=== PATIENT | male | born 1980 | race Caucasian/White ===

== ENCOUNTER 2016-11-19 13:48 | Emergency (ER) | payer OTHER ==
[~2016-11-19 13:48] MED LIST: ALBUTEROL HFA60 DOSE IN; CALCIUM600 M3 PO; MULTIVITAMIN1 TAB PO; PERCOCET1 TA4 PO; PROAIR HFA IN; VITAMIN D-31000 UNIT PO
--- NOTE | 2016-11-19 14:46 | DIAGNOSTIC IMAGING REPORT ---
PROCEDURE: XR TOE - RIGHT (fifth toe). INDICATION: TRAUMA/INJURY TECHNIQUE: Three views. COMPARISON: Comparison is made radiographs of the right foot on 09/13/2015. FINDINGS: There is an oblique fracture of the mid and distal shaft of the proximal phalanx, right fifth toe, with mild medial angulation. There is an old ununited fracture of the midshaft of the right third proximal phalanx. There are moderate degenerative changes right first metatarsal phalangeal joint. Postoperative changes of the right ankle (metal hardware - - partially visualized). IMPRESSION: 1. There is a mildly angulated fracture the midshaft of the proximal phalanx, right fifth toe. 2. Old ununited fracture of the right third proximal phalanx.
--- NOTE | 2016-11-19 15:27 | ED ORDER SUMMARY ---
..... Patient: MAX LEWIS OrderSheet [facility] VisitID: [id number] [address] [place] [address] 36y, M Registration Date/Time: 11/19/2016 ORDER SHEET Weight: 95.2 kg (stated) Allergies: Shellfish-derived Products GENERAL ORDERS: Toe Right Urgent (14:11 11/19/2016 HBivens A.R.N.P.) (Ack 14:12 Canelo) (15:27 HSoule) Elías Tape Toes (4&5) (15:26 11/19/2016 HBivens A.R.N.P.) (15:28 LNations ER Tech1) Post-op Shoe (15:27 11/19/2016 HBivens A.R.N.P.) (15:28 LNations ER Tech1) MEDICATION ORDERS: IV FLUIDS: ORDER SHEET NOTES: [Electronically signed by Deneen Swan (16:59 11/19/2016)] [Electronically signed by Anne Foreman A.R.N.P. (23:58 11/19/2016)] [Electronically locked/signed by Deneen Swan (16:59 11/19/2016)]
--- NOTE | 2016-11-19 15:27 | ED NURSING NOTES ---
Clinical Report - Nurses [facility] [address] [place] [address] 11/19/2016 13:50 Patient: MAX LEWIS TRIAGE Triage time 13:58 Nov 19 2016. Acuity: LEVEL 3. Chief Complaint: INJURY TO RIGHT FOOT. 14:01 11/19/16. SEPSIS SCREEN: Sepsis Screen: negative. Negative (no infection suspected/documented). FIONA COMA SCORE: [place] Coma Scale: 15- eyes open spontaneously (4); best verbal response- oriented x 4 (5); best motor response- obeys commands (6). --14:01 Deneen Swan 13:58 11/19/16. BP: 134/111. HR: 100. RR: 20. O2 saturation: 98%. Temp: 98.3 F (oral). Pain level now: 03/12. --14:01 Deneen Swan. Weight: 95.2 kg stated. Height/Length: 73 inches Per Patient. BMI: 27.7. --13:59 Deneen Swan. Medications ProAir HFA Inhalation. --14:00 Deneen Swan Tylenol Oral, as needed. Vitamins/Minerals Oral. --14:00 Deneen Swan. Allergies Shellfish-derived Products. --14:00 Deneen Swan. Medication/allergy information source: the patient. --14:01 Deneen Swan. History Arrived by private vehicle. Historian: patient. Unaccompanied. This occurred just prior to arrival. Occurred (gym). Mechanism of injury: sustained a twisting injury and fell. ( Patient was wrestling at the gym and his right toes got caught in between two wrestling mats. His toes was dislocated, he put it back into place and it came back out.). He has had trouble walking. PAST MEDICAL HX: Immunizations: up-to-date. SOCIAL HX: Never smoker. No alcohol use or drug use. No infectious disease exposure. ABUSE ASSESSMENT: No report of abuse. FALL RISK ASSESSMENT: Fall risk assessment completed. No fall risk identified. NUTRITIONAL RISK ASSESSMENT: The nutritional risk assessment revealed no deficiencies. FUNCTIONAL ASSESSMENT: Functional assessment: no impairments noted. LEARNING NEEDS ASSESSMENT: The learning needs assessment revealed no barriers. SKIN INTEGRITY ASSESSMENT: Skin integrity risk assessment completed. No skin integrity risk identified. --14:01 Deneen Swan. PROBLEMS: Skin Avulsion. Laceration. Asthma. Sprain. Headache. Hematoma. Asthma. Prior Injury, Same Area. Hypertension. --14:01 Deneen Swan Fractured Phalanx (Toe) [RuleOut]. --14:01 Deneen Swan. ADDITIONAL SURGERIES: Ankle Surgery. --14:01 Deneen Swan. Interventions ID band on patient. To treatment room. --14: Deneen Swan. PHYSICAL ASSESSMENT 14:11/19/16. Ambulatory to room. GENERAL / NEURO / PSYCH: Oriented X 4. Alert. Appears in no acute distress. EXTREMITIES: Capillary refill is less than 2 seconds in the extremities. Extremity pulses are within normal limits. Pain with weight bearing. Right foot: tenderness and deformity of the fifth toe. SKIN: Skin is warm and dry. --14:02 Deneen Swan. NURSING PROGRESS NOTES 14:02 11/19/16. Cold pack applied. Extremity elevated. Reassurance given to the patient. Two patient identifiers checked. Call light placed in reach. Side rails up x 1. Bed placed in lowest position. Brakes of bed on. Patient ready for evaluation- chart flagged. --14:02 Deneen Swan ( Radiology at bedside). --14:36 Deneen Swan The patient reports no complaints and he is resting quietly. --14:48 Deneen Swan ( arnaud taped 4th and 5th toe and applied post-op shoe.). --15:36 Jackie Card, GLENNA Tech1. DISPOSITION / DISCHARGE Departure time: 15:46 Nov 19 2016. Condition at departure: improved. No learning barriers present. Discharge instructions provided and reviewed with the patient. Reviewed warnings. Reviewed medication(s). Treatments reviewed. Reviewed referrals. Verbalized understanding. Written instructions provided in Sinhala. The patient was discharged home and accompanied by director of federal sales. He left the Emergency Department ambulatory and via private vehicle. Director Of Early Childhood Education driving. ( Reviewed BP with Anne Foreman FIRE APPARATUS SPRINKLER INSPECTOR and patient was cleared to dc. Patient encouraged to follow with MD for BP.). --15:47 Donato Dnih R.N. 15:37 11/19/16. BP: 159/118. HR: 92. RR: 18. O2 saturation: 98%. 15:35 11/19/16. BP: 159/118. HR: 90. RR: 20. O2 saturation: 96%. Temp: 98.6 F. Pain level now: 12/11. --15:47 Donato Dinh R.N. Locked/Released at 11/19/2016 16:59 by Deneen Swan,
--- NOTE | 2016-11-19 15:27 | ED ORDER SUMMARY ---
..... Patient: MAX LEWIS OrderSheet [facility] VisitID: [id number] [address] [place] [address] 36y, M Registration Date/Time: 11/19/2016 ORDER SHEET Weight: 95.2 kg (stated) Allergies: Shellfish-derived Products GENERAL ORDERS: Toe Right Urgent (14:11 11/19/2016 HBivens A.R.N.P.) (Ack 14:12 Canelo) (15:27 HSoule) Elías Tape Toes (4&5) (15:26 11/19/2016 HBivens A.R.N.P.) (15:28 LNations ER Tech1) Post-op Shoe (15:27 11/19/2016 HBivens A.R.N.P.) (15:28 LNations ER Tech1) MEDICATION ORDERS: IV FLUIDS: ORDER SHEET NOTES: [Electronically signed by Deneen Swan (16:59 11/19/2016)] [Electronically signed by Anne Foreman A.R.N.P. (23:58 11/19/2016)] [Electronically locked/signed by Deneen Swan (16:59 11/19/2016)]
--- NOTE | 2016-11-19 15:27 | ED CLINICAL REPORT ---
Clinical Report - Physicians/Mid Levels [facility] [address] [place] [address] 11/19/2016 13:50 Patient: MAX LEWIS Time Seen: 13:56; initial patient contact, initial documentation, patient care assumed. Arrived- By private vehicle. Historian- patient. HISTORY OF PRESENT ILLNESS Chief Complaint: Injury to the right 5th (small) toe. The injury happened just prior to arrival. The patient sustained a twisting injury. (gym). ( wrestling, and toe got caught in between mats). Patient is experiencing moderate pain. Patient denies injury to the head or neck. No other injury. (toe looked deformed, so it was pulled on to get it back in place, but it still looks funny and hurts). REVIEW OF SYSTEMS The patient complains of pain on weight bearing. No swelling, tingling, weakness, numbness or skin laceration. All systems otherwise negative, except as recorded above. PAST HISTORY See nurses notes. PROBLEMS: Skin Avulsion. Laceration. Asthma. Sprain. Headache. Hematoma. Asthma. Prior Injury, Same Area. Hypertension. --14:01 Deneen Swan Fractured Phalanx (Toe) [RuleOut]. --14:01 Deneen Swan. ADDITIONAL SURGERIES: Ankle Surgery. --14:01 Deneen Swan. SOCIAL HISTORY Never smoker. No alcohol use or drug use. No recent travel. Is a local resident. FAMILY HISTORY No significant family medical history. ADDITIONAL NOTES The nursing notes have been reviewed with agreement regarding the chief complaint, HPI, ROS, PMH and patient medications and allergies. PHYSICAL EXAM Vital Signs: 11/19/2016 13:58 BP: 134/111. HR: 100. RR: 20. O2 saturation: 98%. Temp: 98.3 F. Pain level now: 7/10. Have been reviewed as abnormal and do not appear to be correct. Hypertensive. Heart rate normal. Respiratory rate normal. Temperature normal. Oxygen saturation normal. Appearance: Alert. Oriented X3. No acute distress. Head: Head atraumatic. Eyes: Pupils equal, round and reactive to light. Eyes normal inspection. Respiratory: No respiratory distress. Back: Normal inspection. No tenderness. ROM normal. Skin: Skin intact. Skin warm and dry. Extremities: Right fifth toe: severe tenderness and mild swelling and deformity consistent with a dislocation of the MTP joint; limited movement secondary to pain (diminished flexion and extension). Neurovascular intact distally. No erythema, laceration, abrasion, ecchymosis or puncture wound. No foreign body. No localization, subungual hematoma or amputation present. No foot injury. No ankle injury. Foot and ankle exam otherwise negative. Extremities otherwise negative. Gait: Normal gait. Neuro, Vascular and Tendons: Vascular status intact. Sensation intact. Motor intact. Tendon function intact. Neuro: Oriented X 3. No motor deficit. No sensory deficit. Note: isolated injury to toe. LABS, X-RAYS, AND EKG X-Rays: Left toe(s). Lt Toes X-ray: (IMPRESSION: 1. There is a mildly angulated fracture the midshaft of the proximal phalanx, right fifth toe. 2. Old ununited fracture of the right third proximal phalanx. Electronically Final signed by:Sebastian Angela MD 11/19/2016 2:43:29 PM). The X-rays were interpreted by the radiologist and contemporaneously by me. PROGRESS AND PROCEDURES Course of Care: 15:41 11/19/16. nurse reporting dc vs, bp still high, pt now admits that he used to be on bp meds, but stopped taking them. Patient counseled in person regarding the patient's stable condition, test results and diagnosis. 14:51. Differential Diagnosis: Other possible considerations: toe fx, dislocation, sprain. Above considerations are based on history, physical exam and X-Ray data. Differential diagnosis was discussed with patient. Disposition: Discharged home in good and improved condition (15:27). Condition: good and stable. CLINICAL IMPRESSION Closed nondisplaced and mildly angulated proximal phalanx fracture of the right 5th toe. INSTRUCTIONS Apply ice for 20 minutes four times a day for two days. Elías tape toes until released. Elevate affected areas above chest level for two days until better. Wear shoe as directed until released. Warnings: GENERAL WARNINGS: Return or contact your physician immediately if your condition worsens or changes unexpectedly, if not improving as expected, or if other problems arise. Specifically return if problem worsens. Prescription Medications: Zofran 4 mg: Take 1 orally every six hours as needed for nausea/vomiting. Dispense ten (10). No refills. Substitution is permissible. [place] 5 mg / 325 mg tablets: take 1 to 2 orally every 6 hours as needed for pain. Dispense fifteen (15). No refills. Substitution is permissible. Motrin 800 mg tablets: take 1 tablet orally every 8 hours as needed for pain. Dispense thirty (30). No refills. Substitution is permissible. Follow-up: Screening today revealed the patient's blood pressure to be in the hypertensive range. The patient should follow up with a primary care provider for blood pressure management. Understanding of the discharge instructions verbalized by patient. Follow-up with: Alexander Drew DPM, Podiatry, , [address], [facility] [address] Follow up in about three days even if well. Call for an appointment. Summary of care provided to patient. (Electronically signed by Anne Foreman A.R.N.P. 11/19/2016 23:58)
--- NOTE | 2016-11-19 15:27 | ED NURSING NOTES ---
Clinical Report - Nurses [facility] [address] [place] [address] 11/19/2016 13:50 Patient: MAX LEWIS TRIAGE Triage time 13:58 Nov 19 2016. Acuity: LEVEL 3. Chief Complaint: INJURY TO RIGHT FOOT. 14:01 11/19/16. SEPSIS SCREEN: Sepsis Screen: negative. Negative (no infection suspected/documented). FIONA COMA SCORE: [place] Coma Scale: 15- eyes open spontaneously (4); best verbal response- oriented x 4 (5); best motor response- obeys commands (6). --14:01 Deneen Swan 13:58 11/19/16. BP: 134/111. HR: 100. RR: 20. O2 saturation: 98%. Temp: 98.3 F (oral). Pain level now: 03/12. --14:01 Deneen Swan. Weight: 95.2 kg stated. Height/Length: 73 inches Per Patient. BMI: 27.7. --13:59 Deneen Swan. Medications ProAir HFA Inhalation. --14:00 Deneen Swan Tylenol Oral, as needed. Vitamins/Minerals Oral. --14:00 Deneen Swan. Allergies Shellfish-derived Products. --14:00 Deneen Swan. Medication/allergy information source: the patient. --14:01 Deneen Swan. History Arrived by private vehicle. Historian: patient. Unaccompanied. This occurred just prior to arrival. Occurred (gym). Mechanism of injury: sustained a twisting injury and fell. ( Patient was wrestling at the gym and his right toes got caught in between two wrestling mats. His toes was dislocated, he put it back into place and it came back out.). He has had trouble walking. PAST MEDICAL HX: Immunizations: up-to-date. SOCIAL HX: Never smoker. No alcohol use or drug use. No infectious disease exposure. ABUSE ASSESSMENT: No report of abuse. FALL RISK ASSESSMENT: Fall risk assessment completed. No fall risk identified. NUTRITIONAL RISK ASSESSMENT: The nutritional risk assessment revealed no deficiencies. FUNCTIONAL ASSESSMENT: Functional assessment: no impairments noted. LEARNING NEEDS ASSESSMENT: The learning needs assessment revealed no barriers. SKIN INTEGRITY ASSESSMENT: Skin integrity risk assessment completed. No skin integrity risk identified. --14:01 Deneen Swan. PROBLEMS: Skin Avulsion. Laceration. Asthma. Sprain. Headache. Hematoma. Asthma. Prior Injury, Same Area. Hypertension. --14:01 Deneen Swan Fractured Phalanx (Toe) [RuleOut]. --14:01 Deneen Swan. ADDITIONAL SURGERIES: Ankle Surgery. --14:01 Deneen Swan. Interventions ID band on patient. To treatment room. --14: Deneen Swan. PHYSICAL ASSESSMENT 14:11/19/16. Ambulatory to room. GENERAL / NEURO / PSYCH: Oriented X 4. Alert. Appears in no acute distress. EXTREMITIES: Capillary refill is less than 2 seconds in the extremities. Extremity pulses are within normal limits. Pain with weight bearing. Right foot: tenderness and deformity of the fifth toe. SKIN: Skin is warm and dry. --14:02 Deneen Swan. NURSING PROGRESS NOTES 14:02 11/19/16. Cold pack applied. Extremity elevated. Reassurance given to the patient. Two patient identifiers checked. Call light placed in reach. Side rails up x 1. Bed placed in lowest position. Brakes of bed on. Patient ready for evaluation- chart flagged. --14:02 Deenen Swan ( Radiology at bedside). --14:36 Deneen Swan The patient reports no complaints and he is resting quietly. --14:48 Deneen Swan ( arnaud taped 4th and 5th toe and applied post-op shoe.). --15:36 Jackie Card, GLENNA Tech1. DISPOSITION / DISCHARGE Departure time: 15:46 Nov 19 2016. Condition at departure: improved. No learning barriers present. Discharge instructions provided and reviewed with the patient. Reviewed warnings. Reviewed medication(s). Treatments reviewed. Reviewed referrals. Verbalized understanding. Written instructions provided in Korean. The patient was discharged home and accompanied by residential sales. He left the Emergency Department ambulatory and via private vehicle. Financial Internship driving. ( Reviewed BP with Anne Foreman TILTING SAW OPERATOR and patient was cleared to dc. Patient encouraged to follow with MD for BP.). --15:47 Donato Dinh R.N. 15:37 11/19/16. BP: 159/118. HR: 92. RR: 18. O2 saturation: 98%. 15:35 11/19/16. BP: 159/118. HR: 90. RR: 20. O2 saturation: 96%. Temp: 98.6 F. Pain level now: 12/11. --15:47 Donato Dinh R.N. Locked/Released at 11/19/2016 16:59 by Deneen Swan,
--- NOTE | 2016-11-19 15:27 | ED CLINICAL REPORT ---
Clinical Report - Physicians/Mid Levels [facility] [address] [place] [place] [address] 11/19/2016 13:50 Patient: MAX LEWIS Time Seen: 13:56; initial patient contact, initial documentation, patient care assumed. Arrived- By private vehicle. Historian- patient. HISTORY OF PRESENT ILLNESS Chief Complaint: Injury to the right 5th (small) toe. The injury happened just prior to arrival. The patient sustained a twisting injury. (gym). ( wrestling, and toe got caught in between mats). Patient is experiencing moderate pain. Patient denies injury to the head or neck. No other injury. (toe looked deformed, so it was pulled on to get it back in place, but it still looks funny and hurts). REVIEW OF SYSTEMS The patient complains of pain on weight bearing. No swelling, tingling, weakness, numbness or skin laceration. All systems otherwise negative, except as recorded above. PAST HISTORY See nurses notes. PROBLEMS: Skin Avulsion. Laceration. Asthma. Sprain. Headache. Hematoma. Asthma. Prior Injury, Same Area. Hypertension. --14:01 Deneen Swan Fractured Phalanx (Toe) [RuleOut]. --14:01 Deneen Swan. ADDITIONAL SURGERIES: Ankle Surgery. --14:01 Deneen Swan. SOCIAL HISTORY Never smoker. No alcohol use or drug use. No recent travel. Is a local resident. FAMILY HISTORY No significant family medical history. ADDITIONAL NOTES The nursing notes have been reviewed with agreement regarding the chief complaint, HPI, ROS, PMH and patient medications and allergies. PHYSICAL EXAM Vital Signs: 11/19/2016 13:58 BP: 134/111. HR: 100. RR: 20. O2 saturation: 98%. Temp: 98.3 F. Pain level now: 7/10. Have been reviewed as abnormal and do not appear to be correct. Hypertensive. Heart rate normal. Respiratory rate normal. Temperature normal. Oxygen saturation normal. Appearance: Alert. Oriented X3. No acute distress. Head: Head atraumatic. Eyes: Pupils equal, round and reactive to light. Eyes normal inspection. Respiratory: No respiratory distress. Back: Normal inspection. No tenderness. ROM normal. Skin: Skin intact. Skin warm and dry. Extremities: Right fifth toe: severe tenderness and mild swelling and deformity consistent with a dislocation of the MTP joint; limited movement secondary to pain (diminished flexion and extension). Neurovascular intact distally. No erythema, laceration, abrasion, ecchymosis or puncture wound. No foreign body. No localization, subungual hematoma or amputation present. No foot injury. No ankle injury. Foot and ankle exam otherwise negative. Extremities otherwise negative. Gait: Normal gait. Neuro, Vascular and Tendons: Vascular status intact. Sensation intact. Motor intact. Tendon function intact. Neuro: Oriented X 3. No motor deficit. No sensory deficit. Note: isolated injury to toe. LABS, X-RAYS, AND EKG X-Rays: Left toe(s). Lt Toes X-ray: (IMPRESSION: 1. There is a mildly angulated fracture the midshaft of the proximal phalanx, right fifth toe. 2. Old ununited fracture of the right third proximal phalanx. Electronically Final signed by:Sebastian Angela MD 11/19/2016 2:43:29 PM). The X-rays were interpreted by the radiologist and contemporaneously by me. PROGRESS AND PROCEDURES Course of Care: 15:41 11/19/16. nurse reporting dc vs, bp still high, pt now admits that he used to be on bp meds, but stopped taking them. Patient counseled in person regarding the patient's stable condition, test results and diagnosis. 14:51. Differential Diagnosis: Other possible considerations: toe fx, dislocation, sprain. Above considerations are based on history, physical exam and X-Ray data. Differential diagnosis was discussed with patient. Disposition: Discharged home in good and improved condition (15:27). Condition: good and stable. CLINICAL IMPRESSION Closed nondisplaced and mildly angulated proximal phalanx fracture of the right 5th toe. INSTRUCTIONS Apply ice for 20 minutes four times a day for two days. Elías tape toes until released. Elevate affected areas above chest level for two days until better. Wear shoe as directed until released. Warnings: GENERAL WARNINGS: Return or contact your physician immediately if your condition worsens or changes unexpectedly, if not improving as expected, or if other problems arise. Specifically return if problem worsens. Prescription Medications: Zofran 4 mg: Take 1 orally every six hours as needed for nausea/vomiting. Dispense ten (10). No refills. Substitution is permissible. [place] 5 mg / 325 mg tablets: take 1 to 2 orally every 6 hours as needed for pain. Dispense fifteen (15). No refills. Substitution is permissible. Motrin 800 mg tablets: take 1 tablet orally every 8 hours as needed for pain. Dispense thirty (30). No refills. Substitution is permissible. Follow-up: Screening today revealed the patient's blood pressure to be in the hypertensive range. The patient should follow up with a primary care provider for blood pressure management. Understanding of the discharge instructions verbalized by patient. Follow-up with: Alexander Drew DPM, Podiatry, , [address], [facility] [address] Follow up in about three days even if well. Call for an appointment. Summary of care provided to patient. (Electronically signed by Anne Foreman A.R.N.P. 11/19/2016 23:58)
--- NOTE | 2016-11-19 23:59 | ED MED RECONCILIATION SUMMARY ---
Patient: MAX LEWIS Medication Reconciliation Report [facility] VisitID: [id number] [address] [place] [address] 36y, M Registration Date/Time: 11/19/2016 Weight: 95.2 kg Height/Length: 73 in. BMI: 27.7 ALLERGIES: Shellfish-derived Products The patient's Home Medications are listed below: THE FOLLOWING MEDICATIONS NEED TO BE RECONCILED: ProAir HFA Inhalation Tylenol Oral Vitamins/Minerals Oral The source(s) of the original Home Medication information: patient The following Medications were given to the patient in the Emergency Department: None. The following Medications were prescribed to the patient: Zofran 4 mg: Take 1 orally every six hours as needed for nausea/vomiting. Dispense ten (10). No refills. Substitution is permissible. -- Anne Foreman A.R.N.P. [place] 5 mg / 325 mg tablets: take 1 to 2 orally every 6 hours as needed for pain. Dispense fifteen (15). No refills. Substitution is permissible. -- Anne Foreman A.R.N.P. Motrin 800 mg tablets: take 1 tablet orally every 8 hours as needed for pain. Dispense thirty (30). No refills. Substitution is permissible. -- Anne Foreman A.R.N.P.
--- NOTE | 2016-11-19 23:59 | ED MAR SUMMARY ---
..... Medication Administration Record [place] [address] [place], [place] [id number] Patient: MAX LEWIS Visit ID: [id number] 36y, M Weight: 95.2 kg Height/Length: 73 in BMI: 27.7 ALLERGIES: Shellfish-derived Products
--- NOTE | 2016-11-19 23:59 | ED MED RECONCILIATION SUMMARY ---
Patient: MAX LEWIS Medication Reconciliation Report [facility] VisitID: [id number] [address] [place] [address] 36y, M Registration Date/Time: 11/19/2016 Weight: 95.2 kg Height/Length: 73 in. BMI: 27.7 ALLERGIES: Shellfish-derived Products The patient's Home Medications are listed below: THE FOLLOWING MEDICATIONS NEED TO BE RECONCILED: ProAir HFA Inhalation Tylenol Oral Vitamins/Minerals Oral The source(s) of the original Home Medication information: patient The following Medications were given to the patient in the Emergency Department: None. The following Medications were prescribed to the patient: Zofran 4 mg: Take 1 orally every six hours as needed for nausea/vomiting. Dispense ten (10). No refills. Substitution is permissible. -- Anne Foreman A.R.N.P. [place] 5 mg / 325 mg tablets: take 1 to 2 orally every 6 hours as needed for pain. Dispense fifteen (15). No refills. Substitution is permissible. -- Anne Foreman A.R.N.P. Motrin 800 mg tablets: take 1 tablet orally every 8 hours as needed for pain. Dispense thirty (30). No refills. Substitution is permissible. -- Anne Foreman A.R.N.P.
--- NOTE | 2016-11-19 23:59 | ED MAR SUMMARY ---
..... Medication Administration Record [place] [address] [place] [id number] Patient: MAX LEWIS Visit ID: [id number] 36y, M Weight: 95.2 kg Height/Length: 73 in BMI: 27.7 ALLERGIES: Shellfish-derived Products
--- NOTE | 2016-11-19 23:59 | ED DISCHARGE INSTRUCTIONS ---
Patient: MAX LEWIS General Instructions [facility] VisitID: [id number] [address] [place] [address] 36y, M Registration Date/Time: 11/19/2016 Closed nondisplaced and mildly angulated proximal phalanx fracture of the right 5th toe. INSTRUCTIONS Apply ice for 20 minutes four times a day for two days. Arnaud tape toes until released. Elevate affected areas above chest level for two days until better. Wear shoe as directed until released. Warnings: GENERAL WARNINGS: Return or contact your physician immediately if your condition worsens or changes unexpectedly, if not improving as expected, or if other problems arise. Specifically return if problem worsens. Prescription Medications: Zofran 4 mg: Take 1 orally every six hours as needed for nausea/vomiting. Dispense ten (10). No refills. Substitution is permissible. [place] 5 mg / 325 mg tablets: take 1 to 2 orally every 6 hours as needed for pain. Dispense fifteen (15). No refills. Substitution is permissible. Motrin 800 mg tablets: take 1 tablet orally every 8 hours as needed for pain. Dispense thirty (30). No refills. Substitution is permissible. Follow-up: Screening today revealed the patient's blood pressure to be in the hypertensive range. The patient should follow up with a primary care provider for blood pressure management. Understanding of the discharge instructions verbalized by patient. Follow-up with: Alexander Drew DPM, Podiatry, , [address], [facility] [address] Follow up in about three days even if well. Call for an appointment. Summary of care provided to patient. ADDITIONAL INFORMATION Fracture:Toe [Closed] You have a fracture of your toe (broken toe). This causes local pain, swelling and bruising. This injury takes about four weeks to heal. Toe injuries are often treated by taping the injured toe to the next one ("arnaud taping"). This protects the injured toe and holds it in position. If the TOENAIL has been severely injured, it may fall off in 1-2 weeks. It takes up to 12 months for a new toenail to grow back. Home Care: 1) You may be given a cast shoe to wear to prevent movement in your toe. If not, you can use a sandal or any shoe that does not put pressure on the injured toe until the swelling and pain go away. If using a sandal, be careful not to strike your foot against anything, since another injury could make the fracture worse. If you were given crutches, do not put full weight on the injured foot until you can do so without pain. 2) Keep your foot elevated to reduce pain and swelling. When sleeping, place a pillow under the injured leg. When sitting, support the injured leg so it is level with your waist. This is very important during the first 48 hours. 3) Apply an ice pack (ice cubes in a plastic bag, wrapped in a towel) over the injured area for 20 minutes every 1-2 hours the first day. Continue with ice packs 3-4 times a day for the next two days, then as needed for the relief of pain and swelling. 4) If arnaud tape was applied and it becomes wet or dirty, change it. You may replace it with paper, plastic or cloth tape. Cloth tape and paper tapes must be kept dry. 5) You may use acetaminophen (Tylenol) or ibuprofen (Motrin, Advil) to control pain, unless another pain medicine was prescribed. [ NOTE : If you have chronic liver or kidney disease or ever had a stomach ulcer or GI bleeding, talk with your doctor before using these medicines.] 6) You may return to sports or physical education activities after 4 weeks or when you can run without pain. Follow Up With Your Doctor In One Week, Or As Advised By Our Staff, To Be Sure The Bone Is Healing Properly. [NOTE: Any X-rays taken will be reviewed by a radiologist. You will be notified of any new findings that may affect your care.] Get Prompt Medical Attention If Any Of The Following Occur: Increasing pain or swelling Toe becomes cold, blue, numb or tingly Signs of infection: fever, redness, warmth, swelling or drainage from the wound Fever of 100.4F (38C) or higher, or as directed by your healthcare provider Ondansetron Oral disintegrating tablet What is this medicine? ONDANSETRON (on ION se sj) is used to treat nausea and vomiting caused by chemotherapy. It is also used to prevent or treat nausea and vomiting after surgery. How should I use this medicine? These tablets are made to dissolve in the mouth. Do not try to push the tablet through the foil backing. With dry hands, peel away the foil backing and gently remove the tablet. Place the tablet in the mouth and allow it to dissolve, then swallow. While you may take these tablets with water, it is not necessary to do so. Talk to your welding machine operator resistance regarding the use of this medicine in children. Special care may be needed. What side effects may I notice from receiving this medicine? Side effects that you should report to your doctor or health medicare sales representative as soon as possible: allergic reactions like skin rash, itching or hives, swelling of the face, lips, or tongue breathing problems dizziness fast or irregular heartbeat feeling faint or lightheaded, falls fever and chills swelling of the hands and feet tightness in the chest Side effects that usually do not require medical attention (report to your doctor or health medicare sales representative if they continue or are bothersome): constipation or diarrhea headache What may interact with this medicine? Do not take this medicine with any of the following medications: -apomorphine -cisapride -dofetilide -dronedarone -pimozide -thioridazine -ziprasidone This medicine may also interact with the following medications: -carbamazepine -phenytoin -rifampicin -tramadol -other medicines that prolong the QT interval (cause an abnormal heart rhythm) What if I miss a dose? If you miss a dose, take it as soon as you can. If it is almost time for your next dose, take only that dose. Do not take double or extra doses. Where should I keep my medicine? Keep out of the reach of children. Store between 2 and 30 degrees C (36 and 86 degrees F). Throw away any unused medicine after the expiration date. What should I tell my health care provider before I take this medicine? They need to know if you have any of these conditions: heart disease history of irregular heartbeat liver disease low levels of magnesium or potassium in the blood an unusual or allergic reaction to ondansetron, granisetron, other medicines, foods, dyes, or preservatives or trying to get breast-feeding What should I watch for while using this medicine? Check with your doctor or health medicare sales representative as soon as you can if you have any sign of an allergic reaction. Hydrocodone Bitartrate, Acetaminophen Oral tablet What is this medicine? ACETAMINOPHEN; HYDROCODONE (a set a SERAFIN giovanna fen; ezra droe KOE done) is a pain reliever. It is used to treat mild to moderate pain. How should I use this medicine? Take this medicine by mouth. Swallow it with a full glass of water. Follow the directions on the prescription label. If the medicine upsets your stomach, take the medicine with food or milk. Do not take more than you are told to take. Talk to your welding machine operator resistance regarding the use of this medicine in children. This medicine is not approved for use in children. What side effects may I notice from receiving this medicine? Side effects that you should report to your doctor or health medicare sales representative as soon as possible: allergic reactions like skin rash, itching or hives, swelling of the face, lips, or tongue breathing problems confusion feeling faint or lightheaded, falls stomach pain yellowing of the eyes or skin Side effects that usually do not require medical attention (report to your doctor or health medicare sales representative if they continue or are bothersome): nausea, vomiting stomach upset What may interact with this medicine? alcohol antihistamines isoniazid medicines for depression, anxiety, or psychotic disturbances medicines for sleep muscle relaxants naltrexone narcotic medicines (opiates) for pain phenobarbital ritonavir tramadol What if I miss a dose? If you miss a dose, take it as soon as you can. If it is almost time for your next dose, take only that dose. Do not take double or extra doses. Where should I keep my medicine? Keep out of the reach of children. This medicine can be abused. Keep your medicine in a safe place to protect it from theft. Do not share this medicine with anyone. Selling or giving away this medicine is dangerous and against the law. Store at room temperature between 15 and 30 degrees C (59 and 86 degrees F). Protect from light. Keep container tightly closed. Throw away any unused medicine after the expiration date. Discard unused medicine and used packaging carefully. Pets and children can be harmed if they find used or lost packages. What should I tell my health care provider before I take this medicine? They need to know if you have any of these conditions: brain tumor Crohn's disease, inflammatory bowel disease, or ulcerative colitis drink more than 3 alcohol-containing drinks per day drug abuse or addiction head injury heart or circulation problems kidney disease or problems going to the bathroom liver disease lung disease, asthma, or breathing problems an unusual or allergic reaction to acetaminophen, hydrocodone, other opioid analgesics, other medicines, foods, dyes, or preservatives or trying to get breast-feeding What should I watch for while using this medicine? Tell your doctor or health medicare sales representative if your pain does not go away, if it gets worse, or if you have new or a different type of pain. You may develop tolerance to the medicine. Tolerance means that you will need a higher dose of the medicine for pain relief. Tolerance is normal and is expected if you take the medicine for a long time. Do not suddenly stop taking your medicine because you may develop a severe reaction. Your body becomes used to the medicine. This does NOT mean you are addicted. Addiction is a behavior related to getting and using a drug for a non-medical reason. If you have pain, you have a medical reason to take pain medicine. Your doctor will tell you how much medicine to take. If your doctor wants you to stop the medicine, the dose will be slowly lowered over time to avoid any side effects. You may get drowsy or dizzy when you first start taking the medicine or change doses. Do not drive, use machinery, or do anything that may be dangerous until you know how the medicine affects you. Stand or sit up slowly. There are different types of narcotic medicines (opiates) for pain. If you take more than one type at the same time, you may have more side effects. Give your health care provider a list of all medicines you use. Your doctor will tell you how much medicine to take. Do not take more medicine than directed. Call emergency for help if you have problems breathing. The medicine will cause constipation. Try to have a bowel movement at least every 2 to 3 days. If you do not have a bowel movement for 3 days, call your doctor or health medicare sales representative. Too much acetaminophen can be very dangerous. Do not take Tylenol (acetaminophen) or medicines that contain acetaminophen with this medicine. Many non-prescription medicines contain acetaminophen. Always read the labels carefully. Ibuprofen Oral tablet What is this medicine? IBUPROFEN (eye BYOO proe fen) is a non-steroidal anti-inflammatory drug (NSAID). It is used for dental pain, fever, headaches or migraines, osteoarthritis, rheumatoid arthritis, or painful monthly periods. It can also relieve minor aches and pains caused by a cold, flu, or sore throat. How should I use this medicine? Take this medicine by mouth with a glass of water. Follow the directions on the prescription label. Take this medicine with food if your stomach gets upset. Try to not lie down for at least 10 minutes after you take the medicine. Take your medicine at regular intervals. Do not take your medicine more often than directed. A special MedGuide will be given to you by the pharmacist with each prescription and refill. Be sure to read this information carefully each time. Talk to your welding machine operator resistance regarding the use of this medicine in children. Special care may be needed. What side effects may I notice from receiving this medicine? Side effects that you should report to your doctor or health medicare sales representative as soon as possible: allergic reactions like skin rash, itching or hives, swelling of the face, lips, or tongue black or bloody stools, blood in the urine or in vomit breathing problems changes in vision chest pain general ill feeling or flu-like symptoms nausea or vomiting redness, blistering, peeling or loosening of the skin, including inside the mouth slurred speech or weakness on one side of the body stomach pain unexplained weight gain or swelling unusually weak or tired yellowing of eyes or skin Side effects that usually do not require medical attention (report to your doctor or health medicare sales representative if they continue or are bothersome): constipation or diarrhea dizziness gas or heartburn stomach upset What may interact with this medicine? Do not take this medicine with any of the following medications: cidofovir ketorolac methotrexate pemetrexed This medicine may also interact with the following medications: alcohol aspirin diuretics lithium other drugs for inflammation like prednisone warfarin What if I miss a dose? If you miss a dose, take it as soon as you can. If it is almost time for your next dose, take only that dose. Do not take double or extra doses. Where should I keep my medicine? Keep out of the reach of children. Store at room temperature between 15 and 30 degrees C (59 and 86 degrees F). Keep container tightly closed. Throw away any unused medicine after the expiration date. What should I tell my health care provider before I take this medicine? They need to know if you have any of these conditions: asthma cigarette smoker drink more than 3 alcohol containing drinks a day heart disease or circulation problems such as heart failure or leg edema (fluid retention) high blood pressure kidney disease liver disease stomach bleeding or ulcers an unusual or allergic reaction to ibuprofen, aspirin, other NSAIDS, other medicines, foods, dyes, or preservatives or trying to get breast-feeding What should I watch for while using this medicine? Tell your doctor or healthcare professional if your symptoms do not start to get better or if they get worse. This medicine does not prevent heart attack or stroke. In fact, this medicine may increase the chance of a heart attack or stroke. The chance may increase with longer use of this medicine and in people who have heart disease. If you take aspirin to prevent heart attack or stroke, talk with your doctor or health medicare sales representative. Do not take other medicines that contain aspirin, ibuprofen, or naproxen with this medicine. Side effects such as stomach upset, nausea, or ulcers may be more likely to occur. Many medicines available without a prescription should not be taken with this medicine. This medicine can cause ulcers and bleeding in the stomach and intestines at any time during treatment. Ulcers and bleeding can happen without warning symptoms and can cause . To reduce your risk, do not smoke cigarettes or drink alcohol while you are taking this medicine. You may get drowsy or dizzy. Do not drive, use machinery, or do anything that needs mental alertness until you know how this medicine affects you. Do not stand or sit up quickly, especially if you are an older patient. This reduces the risk of dizzy or fainting spells. This medicine can cause you to bleed more easily. Try to avoid damage to your teeth and gums when you brush or floss your teeth. You have been given the following additional information: Fracture, Toe [Closed] Ondansetron Oral disintegrating tablet Hydrocodone Bitartrate, Acetaminophen Oral tablet Ibuprofen Oral tablet (Electronically signed by Anne Foreman A.R.N.P. 11/19/2016 23:58)
== END 2016-11-19 15:40 | disposition home or self-care (01) ==
LOC: ED SRH 13:48
DX: S92.514A Nondisplaced fracture of proximal phalanx of right lesser toe(s), initial encounter for closed fracture (principal); W23.1XXA Caught, crushed, jammed, or pinched between stationary objects, initial encounter; Y93.69 Activity, other involving other sports and athletics played as a team or group; Y92.39 Other specified sports and athletic area as the place of occurrence of the external cause; Y99.8 Other external cause status; I10 Essential (primary) hypertension; Z79.899 Other long term (current) drug therapy; Z79.51 Long term (current) use of inhaled steroids; Z91.013 Allergy to seafood